=== PATIENT | female | born 1945 | race Caucasian/White ===

== ENCOUNTER 2020-04-17 19:53 | Emergency (ER) | payer OTHER ==
[~2020-04-17] VITALS: Ht 152.4 cm; Wt 46.3 kg
[2020-04-17 20:49] LABS: ABSOLUTE BASOPHILS 0.1 thou/uL (0.0-0.2); ABSOLUTE EOSINOPHILS 0.5 thou/uL (0.0-0.7); ABSOLUTE LYMPHOCYTES 1.3 thou/uL (0.8-5.3); ABSOLUTE MONOCYTES 0.7 thou/uL (0.0-1.2); ABSOLUTE NEUTROPHILS 8.9 thou/uL (1.6-8.1); BASOPHILS 0.8 %; EOSINOPHILS 4.1 %; HEMATOCRIT 28.4 % (37.0-47.0); HEMOGLOBIN 9.1 gm/dL (12.0-15.0); MCH 26.5 pg (26.0-34.0); MCHC 32.2 g/dL (28.0-37.0); MCV 82.4 fL (80.0-100.0); MONOCYTES 6.5 %; MPV 6.8 fl. (7.2-11.1); NUCLEATED RBCS 0 /100WBC; PLATELET COUNT* 433 thou/uL (150-400); POLYS 77.6 %; RBC 3.44 mil/uL (4.20-5.00); RDW-CV 19.2 % (10.5-14.5); WBC 11.4 thou/uL (4.0-11.0)
[2020-04-17 21:00] LABS: CALCIUM 9.2 mg/dL (8.5-10.1); CREATININE 0.9 mg/dL (0.6-1.3); POTASSIUM 4.4 mmol/L (3.5-5.1)
[2020-04-17 21:04] LABS: ALBUMIN 2.9 g/dL (3.4-5.0); TOTAL BILIRUBIN 0.1 mg/dL (<0.1-1.0); TOTAL PROTEIN 7.6 g/dL (6.4-8.2)
[2020-04-17] MEDS ORDERED: LIDOCAINE 2%2 %/5 GM TOP (23:43)
[2020-04-18] MEDS ORDERED: BENTYL 20 MG TA20 M1 PO (00:22)
[2020-04-18 00:26] VITALS: BP 138/74
== END 2020-04-18 00:26 | disposition home or self-care (01) ==
LOC: M.ERS 19:53
PROVIDERS: Personal Emergency Response Attendant
DX: K59.00 Constipation, unspecified (principal); J44.9 Chronic obstructive pulmonary disease, unspecified; Z90.49 Acquired absence of other specified parts of digestive tract; Z99.81 Dependence on supplemental oxygen

== ENCOUNTER 2020-05-31 00:13 | Inpatient (IN) | payer OTHER ==
[~2020-05-31] VITALS: Ht 152.4 cm; Wt 42.9 kg
[2020-05-31] VITALS (58 sets, daily range): BP systolic 79–162; BP diastolic 34–73
[~2020-05-31 00:13] MED LIST: BENTYL 20 MG TA20 M1 PO; LIDOCAINE 2%2 %/5 GM TOP
[2020-05-31 00:59] LABS: URINE BILIRUBIN NEGATIVE (Negative); URINE BLOOD TRACE (Negative); URINE CLARITY CLEAR; URINE COLOR YELLOW; URINE GLUCOSE-RANDOM NEGATIVE (Negative); URINE KETONES NEGATIVE (Negative); URINE LEUKOCYTES-REFLEX TRACE (Negative); URINE NITRITE-REFLEX NEGATIVE (Negative); URINE PROTEIN 2+ (Negative); URINE SPECIFIC GRAVITY >= 1.030 (1.005-1.030); URINE UROBILINOGEN 0.2 E.U./dl (0.2-1.0)
[2020-05-31] MEDS ORDERED: AMOXICILLIN 50500 MG PO (01:00)
[2020-05-31] MEDS ORDERED: ALPRAZOLAM 0.50.5 M1 PO (01:00)
[2020-05-31] MEDS ORDERED: DICYCLOMINE HCL20 MG PO (01:01)
[2020-05-31] MEDS ORDERED: MIRAPEX 0.250.25 M1 PO (01:01)
[2020-05-31] MEDS ORDERED: OXYCONTIN20 M1 PO (01:02)
[2020-05-31] MEDS ORDERED: VENLAFAXINE H37.5 M2 PO (01:09)
[2020-05-31] MEDS ORDERED: NEURONTIN 300M300 M2 PO (01:09)
[2020-05-31 01:14] LABS: CALCIUM 8.9 mg/dL (8.5-10.1); CREATININE 1.6 mg/dL (0.6-1.3); POTASSIUM 4.4 mmol/L (3.5-5.1)
[2020-05-31 01:25] LABS: ALBUMIN 2.4 g/dL (3.4-5.0); MAGNESIUM 2.4 mg/dL (1.8-2.4); TOTAL BILIRUBIN 0.2 mg/dL (<0.1-1.0); TOTAL PROTEIN 7.2 g/dL (6.4-8.2)
[2020-05-31 01:25] LABS: RENAL EPITHELIAL CELLS 0-3 Few /LPF (None Seen); SQUAMOUS 4-10 Moderate /LPF (0-3); TRANSITIONAL EPITHEL CELL 4-10 Moderate /LPF (None Seen)
[2020-05-31 01:26] LABS: AMORPHOUS URATES Many /LPF (None Seen); BACTERIA-REFLEX >30 Many /HPF (None Seen); CASTS None Seen /LPF (None Seen); MUCUS 4-6 Moderate strn/LPF (None Seen); URINE RBC 3-10 Few /HPF (0-2); URINE WBC-REFLEX 6-15 Few /HPF (0-5)
[2020-05-31 01:32] LABS: BE -2.8 mmol/L (-2 to +3)
[2020-05-31 01:33] LABS: PCO2 74.6 mmHg (35.0-45.0); pH 7.178 (7.340-7.450)
[2020-05-31 02:01] LABS: HEMATOCRIT 30.4 % (37.0-47.0); HEMOGLOBIN 9.4 gm/dL (12.0-15.0); MCH 26.3 pg (26.0-34.0); MCHC 30.9 g/dL (28.0-37.0); MCV 85.1 fL (80.0-100.0); MPV 7.3 fl. (7.2-11.1); NUCLEATED RBCS 0 /100WBC; PLATELET COUNT* 323 thou/uL (150-400); RBC 3.58 mil/uL (4.20-5.00); RDW-CV 16.6 % (10.5-14.5); WBC 23.3 thou/uL (4.0-11.0)
[2020-05-31 02:19] LABS: PROTIME 10.9 Seconds (9.20-11.50)
[2020-05-31 03:31] LABS: ABSOLUTE LYMPHOCYTES 0.5 thou/uL (0.8-5.3); ABSOLUTE MONOCYTES 0.7 thou/uL (0.0-1.2); ABSOLUTE NEUTROPHILS 22.1 thou/uL (1.6-8.1); PLATELET ESTIMATE ADEQUATE; TOXIC GRANULATION 1+
[2020-05-31 05:41] LABS: BE -1.3 mmol/L (-2 to +3)
[2020-05-31 05:46] LABS: PCO2 64.1 mmHg (35.0-45.0); PO2 214.7 mmHg (75.0-100.0)
--- NOTE | 2020-05-31 12:13 | EKG ---
[place] [address] ELECTROCARDIOGRAM REPORT Name: NAZIA FENG Room: [address] ADM IN M.R.#: [id number] Admission: 05/31/20 Attend Phys: Ping Sands Discharge: Date of : 45 Date of Service: 05/31/20 0019 Report #: [id number] THIS REPORT FOR: //name// [facility] ED Test Date: 2020-05-31 Test Time: 00:19:17 Pat Name: NAZIA FENG Department: Room: [facility] Gender: F Banking Management Consulting Manager: [place] : 1945 Requested By: Anabelle Leon Order Number: [id number] MD: Marc Britton Measurements Intervals Newton Rate: 100 P: 69 NV: 169 QRS: -70 QRSD: 98 T: 63 QT: 393 QTc: 507 Interpretive Statements Sinus tachycardia incomplete RBBB Left atrial enlargement Left anterior fascicular block Abnormal R-wave progression, early transition Left ventricular hypertrophy Anterior Q waves, possibly due to LVH Prolonged QT interval No previous ECG available for comparison Electronically Signed On 05-31-2020 12:13:48 EQUIPMENT OPERATOR WAGE HAND by Marc Britton [email or web address] <ELECTRONICALLY SIGNED> By: Marc Britton MD, FACC 05/31/20 1213 0019 0019 Marc Britton MD, [facility] /EPI
--- NOTE | 2020-05-31 12:15 | EKG ---
[place] [address] ELECTROCARDIOGRAM REPORT Name: NAZIA FENG Room: [address] ADM IN M.R.#: [id number] Admission: 05/31/20 Attend Phys: Ping Sands Discharge: Date of : 45 Date of Service: 05/31/20 0404 Report #: [id number] THIS REPORT FOR: //name// [facility] ED Test Date: 2020-05-31 Test Time: 04:04:53 Pat Name: NAZIA FENG Department: Room: [address] Gender: F Program Eligibility Specialist: [place] : 1945 Requested By: Anabelle Leon Order Number: [id number] Reading MD: Marc Britton Measurements Intervals Ferdinand Rate: 70 P: 77 MI: 146 QRS: -54 QRSD: 100 T: 38 QT: 437 QTc: 472 Interpretive Statements Sinus rhythm Left atrial enlargement Left anterior fascicular block Left ventricular hypertrophy early repolarization Lateral leads are also involved Compared to ECG 05/31/2020 00:19:17 Sinus tachycardia no longer present Prolonged QT interval no longer present Electronically Signed On 05-31-2020 12:15:38 POLICE CAPTAIN by Marc Britton [email or web address] <ELECTRONICALLY SIGNED> By: Marc Britton MD, [facility] 05/31/20 1215 Marc Britton MD, [facility] /EPI
[2020-05-31 13:27] LABS: CALCIUM 7.6 mg/dL (8.5-10.1); POTASSIUM 4.3 mmol/L (3.5-5.1)
[2020-05-31 13:30] LABS: MAGNESIUM 1.7 mg/dL (1.8-2.4); PHOSPHORUS* 2.4 mg/dL (2.5-4.9)
--- NOTE | 2020-05-31 13:49 | 2DMMODE ---
[place] [address] 2 D/M-MODE ECHOCARDIOGRAM Name: NAZIA FENG Room: [address] ADM IN .R.#: [id number] Admission: 05/31/20 Attend Phys: Ping Sands Discharge: Date of : 45 Date of Service: 05/31/20 1349 Report #: [id number] THIS REPORT FOR: cc: Collin Kauffman Gregory DO Blick,Marc Tate MD [facility] ~ APPROVED REPORT Study performed: 05/31/2020 10:42:25 EXAM: Comprehensive 2D, Doppler, and color-flow Echocardiogram Patient Location: In-Patient Room #: 001 Status: routine BSA: 1.42 HR: 82 bpm BP: 99/49 mmHg Rhythm: NSR Other Information Study Quality: Good Indications Dyspnea 2D Dimensions IVSd: 10.74 (7-11mm) LVOT Diam: 20.30 (18-24mm) LVDd: 40.75 mm PWd: 8.74 (7-11mm) Ascending Ao: 29.28 (22-36mm) LVDs: 19.33 (25-40mm) Aortic Root: 32.32 mm Volumes Left Atrial Volume (Systole) LA ESV Index: 12.90 mL/m2 Aortic Valve AoV Peak Nishant.: 1.33 m/s AO Peak Gr.: 7.03 mmHg LVOT Max P.17 mmHg AO Mean Gr.: 3.58 mmHg LVOT Mean P.46 mmHg LVOT Max V: 0.89 m/s AO V2 VTI: 21.72 cm LVOT Mean V: 0.55 m/s ALEKSANDR (VTI): 2.59 cm2 LVOT V1 VTI: 17.37 [place] [address] 2 D/M-MODE ECHOCARDIOGRAM Name: NAZIA FENG Room: [address] IN ..#: [id number] Admission: 05/31/20 Attend Phys: Ping Sands Discharge: Date of : 45 Date of Service: 05/31/20 1349 Report #: [id number] Mitral Valve E/A Ratio: 0.87 MV Decel. Time: 294.22 ms MV E Max Nishant.: 0.75 m/s MV PHT: 85.32 ms MVA (PHT): 2.58 cm2 TDI E/Lateral E': 15.00 E/Medial E': 12.50 Medial E' Nishant.: 0.06 m/s Lateral E' Nishant.: 0.05 m/s Pulmonary Valve PV Peak Nishant.: 1.06 m/s PV Peak Gr.: 4.50 mmHg Tricuspid Valve RAP Estimate: 5.00 mmHg TR Peak Gr.: 31.34 mmHg RVSP: 36.00 mmHg PA Pressure: 36.00 mmHg Left Ventricle The left ventricle is normal size. There is normal LV segmental wall motion. There is normal left ventricular wall thickness. Left ventricular systolic function is normal. The left ventricular ejection fraction is within the normal range. LVEF is 65-70%. Grade I - abnormal relaxation pattern. Right Ventricle The right ventricle is normal size. The right ventricular systolic function is normal. Atria The left atrium size is normal. The right atrium size is normal. Aortic Valve Mild aortic valve sclerosis. No aortic regurgitation is present. There is no aortic valvular stenosis. Mitral Valve The mitral valve is normal in structure. There is no mitral valve regurgitation noted. No evidence of mitral valve stenosis. Tricuspid Valve The tricuspid valve is normal in structure. Mild tricuspid regurgitation. estimated pa pressure 40 [place] [address] 2 D/M-MODE ECHOCARDIOGRAM Name: NAZIA FENG Room: [address] IN [facility]#: [id number] Admission: 05/31/20 Attend Phys: Ping Sands Discharge: Date of : 45 Date of Service: 05/31/20 1349 Report #: [id number] Pulmonic Valve The pulmonary valve is normal in structure. There is no pulmonic valvular regurgitation. Great Vessels The aortic root is normal in size. IVC is normal in size and collapses >50% with inspiration. Pericardium There is no pericardial effusion. Small left pleural effusion. <Conclusion> LVEF is 65-70%. Mild tricuspid regurgitation. estimated pa pressure 40 mm Hg Small left pleural effusion. <ELECTRONICALLY SIGNED> By: Marc Britton MD, [facility] 05/31/20 1349 1349 1349 Marc Britton MD, FACC /INF
[2020-05-31 14:07] LABS: HEMATOCRIT 26.1 % (37.0-47.0); HEMOGLOBIN 8.1 gm/dL (12.0-15.0); MCH 26.3 pg (26.0-34.0); MCV 84.7 fL (80.0-100.0); MPV 7.4 fl. (7.2-11.1); NUCLEATED RBCS 0 /100WBC; PLATELET COUNT* 302 thou/uL (150-400); RBC 3.08 mil/uL (4.20-5.00); RDW-CV 16.5 % (10.5-14.5)
[2020-05-31 14:25] LABS: ABSOLUTE LYMPHOCYTES 0.5 thou/uL (0.8-5.3); ABSOLUTE MONOCYTES 0.2 thou/uL (0.0-1.2); ABSOLUTE NEUTROPHILS 14.4 thou/uL (1.6-8.1)
[2020-05-31 14:26] LABS: PLATELET ESTIMATE ADEQUATE
[2020-05-31 16:00] LABS: BE -1.4 mmol/L (-2 to +3); PCO2 43.5 mmHg (35.0-45.0); PO2 70.4 mmHg (75.0-100.0); pH 7.361 (7.340-7.450)
--- NOTE | 2020-05-31 22:36 | CON ---
[address] [address] CONSULTATION Name: NAZIA FENG Room: [address] IN M.R.#: [id number] Admission: 05/31/20 Attend Phys: Sid Cross Discharge: Date of : 45 Report #: [id number] THIS REPORT FOR: cc: Collin Kauffman Gregory DO ~ Pervez, Adeel MD DATE OF SERVICE: 05/31/2020 REQUESTING PHYSICIAN: Philip Pablo DO INDICATION FOR CONSULTATION: [id number]-[id number] hypoxemic and hypercarbic respiratory failure. HISTORY OF PRESENT ILLNESS: This is a 75-year-old female with past medical history includes a history of oxygen-dependent COPD. The patient is noted to be an active smoker. The patient in fact toward the middle of 2019 was reported to have had COVID-19. She is reported to have subsequently tested negative for COVID-19 as well. The patient is now admitted with acute respiratory distress and unresponsiveness at home. The patient did briefly receive CPR at home; however, it is not fully apparent to me as to whether the patient in fact had a cardiac arrest or not. She is reported to have had agonal respirations. The patient is now intubated. She does appear to be actively bronchospastic on exam. She does have a drop in pH as well as high pCO2; however, oxygenating adequately and ventilating adequately as well with 40% FiO2 and 5 of PEEP. The patient has mild hypotension requiring minimal amounts of norepinephrine. She does have a central line in place. The patient also is noted to be in acute renal failure. Her creatinine at baseline is 0.9. Creatinine this morning was 1.6. The patient is unable to provide a further history or review of systems. Note that she has tested positive for COVID-19. PAST MEDICAL HISTORY: COPD, oxygen dependent; active smoker; COVID-19 in mid, reported to have subsequently tested negative; anemia; megacolon; gastrointestinal bleed; colon surgery. Baseline creatinine 0.9. SOCIAL HISTORY: Active smoker, 1 pack a day, has been smoking for 60 years. No known history of heavy alcohol use or illegal drug use. CURRENT MEDICATIONS: List in [employer] reviewed. HOME MEDICATIONS: The list also in [employer] reviewed. ALLERGIES: THERE ARE MULTIPLE ALLERGIES LISTED IN THE RECORDS. AMONGST OTHERS, THE PATIENT IS REPORTED TO BE ALLERGIC TO AVELOX, VANCOMYCIN, ADHESIVE [place] [address] CONSULTATION Name: NAZIA FENG Room: [address]#: [id number] Admission: 05/31/20 Attend Phys: Sid Cross Discharge: Date of : 45 Report #: [id number] FAMILY HISTORY: There is no pertinent family history known at this time. PHYSICAL EXAMINATION: GENERAL: The patient is drowsy, arousable. VITAL SIGNS: Pulse of 72 and a blood pressure of 100/60. She is on 1 mcg of norepinephrine. She is afebrile with a temperature of 37.0, which is her T-max. She is on a tidal volume of 450 with an AC rate set at 14. We will decrease FIO2 to 40%, PEEP is 5. The patient is maintaining O2 saturation in the high 90s. Her spontaneous rate is 16. HEENT: Head is normocephalic and atraumatic. Endotracheal tube is in position. As below, it may be low. NECK: Does not show raised JVP, asymmetry, mass or lymph node. There is an IJ central line in place. CHEST: Symmetrical expansion on inspection and palpation. On auscultation, breath sounds are decreased. I do hear significant inspiratory as well as expiratory wheezes. HEART: Regular. There is no murmur. ABDOMEN: Soft and nontender. EXTREMITIES: Lower extremities show no edema and no calf tenderness. SKIN: Dry and intact. NEUROLOGICAL: She does move all extremities bilaterally equally. There is no focal deficit identified. LABORATORY DATA: The patient did have a CT chest without contrast performed. It does show bilateral basilar infiltrates. Endotracheal tube is towards the lower end of the trachea. There are also bilateral pleural effusions noted. There is also significant scarring including apical scarring noted on her CT. There is enlargement of the pulmonary vasculature. Note that this is a noncontrast CT. The patient's CT head did not show any evidence of bleed. The chest x-rays done twice also in [facility] reviewed. Lab work including arterial blood gases in [facility] reviewed. ASSESSMENT AND PLAN: 1. Hkkub-fg-ejbfajw hypoxemic and hypercarbic respiratory failure. Would treat her bronchospasm first. We will also wait until her pH has normalized. We will subsequently assess for weaning. In the meantime, we will start her on a Precedex infusion and give her Versed and fentanyl p.r.n. for sedation. We will check an arterial blood gas again now. The patient's endotracheal tube was low on the last imaging. It is not known to me as to whether this has been repositioned since then. I would repeat a chest x-ray now and then reassess. The patient does have a central line for IV access. 2. Acute exacerbation of chronic obstructive pulmonary disease. The patient is actively bronchospastic; and therefore, significantly increased the dose of her [facility] [address] [place] [address] CONSULTATION Name: NAZIA FENG Room: [address] ADM IN M.R.#: [id number] Admission: 05/31/20 Attend Phys: Sid Cross Discharge: Date of : 45 Report #: [id number] steroid. We will also nebulized bronchodilators. 3. COVID-19. Steroid as above. I will also go ahead and start with remdesivir. Note that there is mild elevation in alkaline phosphatase. Watch this closely while on remdesivir. For now, I decided to hold off on starting convalescent plasma. Should the patient's condition deteriorate, this could be a consideration later on. 4. Pulmonary infiltrates. There is also copious discharge from her endotracheal tube. We will do a sputum culture. We will check a nasal swab for methicillin-resistant Staphylococcus aureus. The patient currently is on ceftriaxone as well as azithromycin. For now, I continued the same. Should she decline based on sputum culture results, certainly we can consider broadening antibiotics later. 5. Acute renal failure/fluid overload. The patient does have bilateral pleural effusions. I feel that she is total body fluid overloaded. However, considering elevation in creatinine and decreased blood pressure, I do agree with normal saline as ordered by the primary service. We will repeat labs now and based on this, if indicated, we will order additional fluids and albumin. 6. Hypotension. We will also await echo. Hopefully, she can be off norepinephrine soon. 7. Deep vein thrombosis prophylaxis. If the patient's H and H remained stable then I will be inclined to start Lovenox in the prophylactic dose soon. 8. History of gastrointestinal bleed/GI prophylaxis. The patient is on Protonix. 9. Nutrition. I recommend proceeding with starting tube feeds. Consult dietitian. The patient is critically ill at this time. Total time spent providing critical care to this patient today exceeds 45 minutes. <ELECTRONICALLY SIGNED> By: Esteban Oconnor MD 05/31/20 2236 1243 [id number] Oconnor MD /nt
[2020-06-01] VITALS (68 sets, daily range): BP systolic 84–176; BP diastolic 47–78
[2020-06-01 05:00] LABS: ABSOLUTE LYMPHOCYTES 0.6 thou/uL (0.8-5.3); ABSOLUTE MONOCYTES 0.9 thou/uL (0.0-1.2); ABSOLUTE NEUTROPHILS 14.4 thou/uL (1.6-8.1); BASOPHILS 0.1 %; HEMATOCRIT 25.6 % (37.0-47.0); HEMOGLOBIN 8.2 gm/dL (12.0-15.0); MCH 26.5 pg (26.0-34.0); MCHC 32.1 g/dL (28.0-37.0); MCV 82.6 fL (80.0-100.0); MONOCYTES 5.6 %; MPV 7.2 fl. (7.2-11.1); NUCLEATED RBCS 0 /100WBC; PLATELET COUNT* 325 thou/uL (150-400); POLYS 90.3 %; RDW-CV 16.8 % (10.5-14.5)
[2020-06-01 05:13] LABS: ALBUMIN 2.2 g/dL (3.4-5.0); ALKALINE PHOSPHATASE 90 U/L (46-116); ANION GAP 7 mmol/L (7-16); BUN 24 mg/dL (7-18); CALCIUM 7.8 mg/dL (8.5-10.1); CHLORIDE 109 mmol/L (98-107); CHOLESTEROL 129 mg/dL (<200); CO2 28 mmol/L (21-32); CREATININE 0.9 mg/dL (0.6-1.3); GLUCOSE 135 mg/dL (70-99); HDL CHOLESTEROL 42 mg/dL (>40); LDL CHOLESTEROL 74 mg/dL (<100); MAGNESIUM 2.1 mg/dL (1.8-2.4); POTASSIUM 3.8 mmol/L (3.5-5.1); SGOT 39 U/L (15-37); SGPT 41 U/L (30-65); SODIUM 144 mmol/L (136-145); TC:HDL 3.1 Ratio (Not establshd); TOTAL BILIRUBIN 0.1 mg/dL (<0.1-1.0); TOTAL PROTEIN 5.8 g/dL (6.4-8.2); TRIGLYCERIDE 69 mg/dL (<150); VLDL 14 mg/dL (<40)
[2020-06-01 05:27] LABS: SERUM ASSESSMENT CLEAR
[2020-06-01 07:55] LABS: BE 1.7 mmol/L (-2 to +3); PCO2 37.4 mmHg (35.0-45.0); PO2 70.4 mmHg (75.0-100.0); pH 7.454 (7.340-7.450)
[2020-06-01 12:57] LABS: BE 1.2 mmol/L (-2 to +3); PCO2 39.1 mmHg (35.0-45.0); pH 7.432 (7.340-7.450)
[2020-06-01 13:01] LABS: PO2 55.7 mmHg (75.0-100.0)
[2020-06-02] VITALS (35 sets, daily range): BP systolic 107–181; BP diastolic 48–98
[2020-06-02 02:32] LABS: ABSOLUTE LYMPHOCYTES 0.3 thou/uL (0.8-5.3); ABSOLUTE MONOCYTES 0.3 thou/uL (0.0-1.2); HEMATOCRIT 28.6 % (37.0-47.0); HEMOGLOBIN 9.2 gm/dL (12.0-15.0); LYMPHOCYTES 1.5 %; MCH 26.2 pg (26.0-34.0); MCV 81.7 fL (80.0-100.0); MONOCYTES 1.5 %; MPV 7.3 fl. (7.2-11.1); NUCLEATED RBCS 0 /100WBC; PLATELET COUNT* 392 thou/uL (150-400); RDW-CV 17.3 % (10.5-14.5); WBC 17.6 thou/uL (4.0-11.0)
[2020-06-02 02:39] LABS: ALBUMIN 2.3 g/dL (3.4-5.0); CALCIUM 8.3 mg/dL (8.5-10.1); MAGNESIUM 1.9 mg/dL (1.8-2.4); POTASSIUM 3.9 mmol/L (3.5-5.1); TOTAL BILIRUBIN 0.2 mg/dL (<0.1-1.0); TOTAL PROTEIN 6.2 g/dL (6.4-8.2)
[2020-06-02 10:53] LABS: BE 2.9 mmol/L (-2 to +3); PCO2 35.1 mmHg (35.0-45.0); PO2 80.9 mmHg (75.0-100.0)
[2020-06-03] VITALS (19 sets, daily range): BP systolic 121–184; BP diastolic 58–92
[2020-06-03 05:00] LABS: HEMOGLOBIN 9.6 gm/dL (12.0-15.0); MCH 26.1 pg (26.0-34.0); MCHC 32.1 g/dL (28.0-37.0); MCV 81.3 fL (80.0-100.0); MPV 7.3 fl. (7.2-11.1); RBC 3.69 mil/uL (4.20-5.00); RDW-CV 17.5 % (10.5-14.5); WBC 18.6 thou/uL (4.0-11.0)
[2020-06-03 05:16] LABS: CALCIUM 9.3 mg/dL (8.5-10.1); CREATININE 0.9 mg/dL (0.6-1.3); POTASSIUM 4.5 mmol/L (3.5-5.1)
--- NOTE | 2020-06-03 09:29 | CON ---
[facility] [address] [place] [address] CONSULTATION Name: NAZIA FENG Room: [address] IN M.R.#: [id number] Admission: 05/31/20 Attend Phys: Sid Cross Discharge: Date of : 45 Report #: [id number] THIS REPORT FOR: cc: Collin Kauffman Gregory DO ~ Blick, David R. MD [facility] DATE OF SERVICE: 05/31/2020 CARDIOLOGY CONSULTATION HISTORY OF PRESENT ILLNESS: The patient is a 75-year-old white female who I was asked to see in the hospital today because of respiratory failure. The patient has a history of COPD. Apparently, family members said they heard the patient's snoring down stairs. When they went to check on her, she was unresponsive. Paramedics were called. When paramedics arrived, the patient had agonal breath and was unresponsive. CPR was started. Apparently, the patient was cardioverted and had spontaneous return of circulation. She was noted to have a pulse. She was given epinephrine. She apparently had recently been discharged from [facility] a month ago due to pneumonia and anemia requiring transfusions. There has been no history of chest pain, palpitations or syncope. PAST MEDICAL HISTORY: She has had previous hemicolectomy, anemia. MEDICATIONS: On admission included Xanax, Mirapex, venlafaxine, Neurontin. ALLERGIES: SHE HAS AN ALLERGY TO VANCOMYCIN AND CODEINE. SOCIAL HISTORY: No history of alcohol abuse. REVIEW OF SYSTEMS: Could not be obtained. PHYSICAL EXAMINATION: GENERAL: In the ICU reveals an elderly female lying in bed, on ventilator. VITAL SIGNS: Blood pressure is only 100 systolic, pulse is 80, she is on Levophed infusion for low blood pressure. She is afebrile. HEENT: She was anicteric. Conjunctivae pink. Mucous members moist. NECK: Veins do not appear distended. CHEST: Revealed decreased breath sounds bilaterally. CARDIOVASCULAR: Regular rate and rhythm, no murmur. ABDOMEN: Soft. EXTREMITIES: Had no edema. SKIN: Cool and dry. NEUROLOGIC: [place] [address] CONSULTATION Name: NAZIA FENG Room: [address] IN [facility]#: [id number] Admission: 05/31/20 Attend Phys: Sid Cross Discharge: Date of : 45 Report #: [id number] RADIOLOGICAL DATA: Her ECG on admission showed a sinus rhythm, left axis, early repolarization. Her workup in the Emergency Room last night, she had a portable chest x-ray that showed right lower lobe infiltrate, some atelectasis. She had a CT scan of the head that showed no acute abnormality. She had a CT scan of the chest performed that showed some atelectasis, pneumonia. There appeared to be a vascular stent in the right carotid artery. LABORATORY WORK: Last night, sodium 135, BUN 37, creatinine 1.6, glucose was 178, SGOT 117, albumin 2.4. Troponin 0.06. BNP 904. White blood cell count 23.3, hemoglobin 9.4. COVID antigen test was positive. IMPRESSION AND RECOMMENDATIONS: 1. Acute respiratory failure. The patient is on ventilator. 2. Chronic obstructive pulmonary disease. 3. Hypotension. Suspect sepsis. 4. COVID-19. 5. Anemia, apparently chronic. <ELECTRONICALLY SIGNED> By: Marc Britton MD, [facility] 06/03/20 0929 0903 [id number] Britton MD, [facility] /nt
[2020-06-04 06:34] LABS: HEMATOCRIT 33.8 % (37.0-47.0); HEMOGLOBIN 10.5 gm/dL (12.0-15.0); MCH 25.7 pg (26.0-34.0); MCHC 31.2 g/dL (28.0-37.0); MCV 82.2 fL (80.0-100.0); MPV 8.1 fl. (7.2-11.1); NUCLEATED RBCS 0 /100WBC; RBC 4.11 mil/uL (4.20-5.00); RDW-CV 17.3 % (10.5-14.5); WBC 23.6 thou/uL (4.0-11.0)
[2020-06-04 06:37] LABS: PLATELET COUNT* 534 thou/uL (150-400)
[2020-06-04 07:10] LABS: ALBUMIN 2.6 g/dL (3.4-5.0); CALCIUM 9.6 mg/dL (8.5-10.1); CREATININE 0.9 mg/dL (0.6-1.3); MAGNESIUM 2.1 mg/dL (1.8-2.4); POTASSIUM 4.1 mmol/L (3.5-5.1); TOTAL BILIRUBIN 0.3 mg/dL (<0.1-1.0); TOTAL PROTEIN 6.6 g/dL (6.4-8.2)
[2020-06-04 07:23] LABS: ABSOLUTE LYMPHOCYTES 0.7 thou/uL (0.8-5.3); ABSOLUTE MONOCYTES 1.2 thou/uL (0.0-1.2); ABSOLUTE NEUTROPHILS 21.7 thou/uL (1.6-8.1); PLATELET ESTIMATE ADEQUATE
[2020-06-04 08:00] VITALS: BP 177/73
[2020-06-04 15:51] VITALS: BP 161/71
[2020-06-04 23:58] VITALS: BP 170/81
[2020-06-05 04:08] VITALS: BP 197/104
[2020-06-05 08:00] VITALS: BP 162/78
[2020-06-05 11:30] VITALS: BP 151/75
[2020-06-05 15:13] LABS: ABSOLUTE BASOPHILS 0.3 thou/uL (0.0-0.2); ABSOLUTE LYMPHOCYTES 0.3 thou/uL (0.8-5.3); ABSOLUTE MONOCYTES 0.6 thou/uL (0.0-1.2); ABSOLUTE NEUTROPHILS 26.1 thou/uL (1.6-8.1); BASOPHILS 1.1 %; HEMATOCRIT 33.8 % (37.0-47.0); HEMOGLOBIN 10.4 gm/dL (12.0-15.0); LYMPHOCYTES 1.1 %; MCH 25.3 pg (26.0-34.0); MCHC 30.7 g/dL (28.0-37.0); MCV 82.6 fL (80.0-100.0); MPV 7.7 fl. (7.2-11.1); NUCLEATED RBCS 0 /100WBC; POLYS 95.8 %; RBC 4.09 mil/uL (4.20-5.00); RDW-CV 17.2 % (10.5-14.5); WBC 27.2 thou/uL (4.0-11.0)
[2020-06-05 15:14] LABS: PLATELET COUNT* 455 thou/uL (150-400)
[2020-06-05 15:35] LABS: ALBUMIN 2.7 g/dL (3.4-5.0); CALCIUM 9.7 mg/dL (8.5-10.1); CREATININE 1.2 mg/dL (0.6-1.3); POTASSIUM 4.9 mmol/L (3.5-5.1); TOTAL BILIRUBIN 0.4 mg/dL (<0.1-1.0); TOTAL PROTEIN 6.3 g/dL (6.4-8.2)
[2020-06-05 16:30] VITALS: BP 146/77
[2020-06-05 21:00] VITALS: BP 117/52; BP 144/64
[2020-06-06 08:00] VITALS: BP 174/68
[2020-06-06 11:54] VITALS: BP 134/59
[2020-06-06 12:36] LABS: ABSOLUTE BASOPHILS 0.1 thou/uL (0.0-0.2); ABSOLUTE LYMPHOCYTES 0.4 thou/uL (0.8-5.3); ABSOLUTE MONOCYTES 0.8 thou/uL (0.0-1.2); ABSOLUTE NEUTROPHILS 13.9 thou/uL (1.6-8.1); BASOPHILS 0.3 %; HEMATOCRIT 29.7 % (37.0-47.0); HEMOGLOBIN 9.1 gm/dL (12.0-15.0); LYMPHOCYTES 2.4 %; MCH 25.5 pg (26.0-34.0); MCHC 30.8 g/dL (28.0-37.0); MCV 82.8 fL (80.0-100.0); MONOCYTES 5.2 %; MPV 8.5 fl. (7.2-11.1); NUCLEATED RBCS 0 /100WBC; PLATELET COUNT* 402 thou/uL (150-400); POLYS 92.1 %; RBC 3.59 mil/uL (4.20-5.00); RDW-CV 17.3 % (10.5-14.5); WBC 15.1 thou/uL (4.0-11.0)
[2020-06-06 12:47] LABS: CALCIUM 9.2 mg/dL (8.5-10.1); CREATININE 1.1 mg/dL (0.6-1.3); MAGNESIUM 2.2 mg/dL (1.8-2.4); POTASSIUM 4.9 mmol/L (3.5-5.1)
[2020-06-06] MEDS ORDERED: ASA81BEC PO (13:57)
[2020-06-06 16:37] VITALS: BP 162/62
[2020-06-06 20:20] VITALS: BP 162/73
[2020-06-07 00:05] VITALS: BP 154/65
[2020-06-07 03:59] VITALS: BP 188/76
[2020-06-07 12:00] VITALS: BP 192/78
[2020-06-07 17:09] VITALS: BP 145/70
[2020-06-07 20:06] VITALS: BP 131/64
[2020-06-07 23:24] VITALS: BP 180/79
[2020-06-08 04:21] VITALS: BP 137/59
[2020-06-08 04:21] LABS: HEMATOCRIT 30.2 % (37.0-47.0); HEMOGLOBIN 9.5 gm/dL (12.0-15.0); MCH 25.9 pg (26.0-34.0); MCHC 31.6 g/dL (28.0-37.0); MCV 82.1 fL (80.0-100.0); NUCLEATED RBCS 0 /100WBC; PLATELET COUNT* 370 thou/uL (150-400); RBC 3.68 mil/uL (4.20-5.00); RDW-CV 17.3 % (10.5-14.5); WBC 19.1 thou/uL (4.0-11.0)
[2020-06-08 04:34] LABS: ALBUMIN 2.6 g/dL (3.4-5.0); CALCIUM 9.4 mg/dL (8.5-10.1); MAGNESIUM 2.1 mg/dL (1.8-2.4); POTASSIUM 4.8 mmol/L (3.5-5.1); TOTAL BILIRUBIN 0.3 mg/dL (<0.1-1.0); TOTAL PROTEIN 5.9 g/dL (6.4-8.2)
[2020-06-08 06:15] LABS: ABSOLUTE LYMPHOCYTES 0.2 thou/uL (0.8-5.3); ABSOLUTE MONOCYTES 0.4 thou/uL (0.0-1.2); ABSOLUTE NEUTROPHILS 18.5 thou/uL (1.6-8.1); PLATELET ESTIMATE ADEQUATE
[2020-06-08 11:48] VITALS: BP 148/68
[2020-06-08 15:56] VITALS: BP 133/60
[2020-06-08 20:00] VITALS: BP 171/68
[2020-06-09 00:10] VITALS: BP 146/66
[2020-06-09 04:32] VITALS: BP 130/62
[2020-06-09 05:42] LABS: ABSOLUTE EOSINOPHILS 0.1 thou/uL (0.0-0.7); ABSOLUTE LYMPHOCYTES 1.2 thou/uL (0.8-5.3); ABSOLUTE MONOCYTES 1.4 thou/uL (0.0-1.2); ABSOLUTE NEUTROPHILS 19.8 thou/uL (1.6-8.1); BASOPHILS 0.1 %; EOSINOPHILS 0.6 %; HEMATOCRIT 31.3 % (37.0-47.0); HEMOGLOBIN 9.6 gm/dL (12.0-15.0); LYMPHOCYTES 5.1 %; MCH 25.5 pg (26.0-34.0); MCHC 30.7 g/dL (28.0-37.0); MCV 83.1 fL (80.0-100.0); MONOCYTES 6.1 %; MPV 7.8 fl. (7.2-11.1); NUCLEATED RBCS 0 /100WBC; PLATELET COUNT* 417 thou/uL (150-400); POLYS 88.1 %; RBC 3.76 mil/uL (4.20-5.00); RDW-CV 17.2 % (10.5-14.5); WBC 22.4 thou/uL (4.0-11.0)
[2020-06-09 05:57] LABS: CALCIUM 9.2 mg/dL (8.5-10.1); CREATININE 0.9 mg/dL (0.6-1.3); MAGNESIUM 2.2 mg/dL (1.8-2.4); POTASSIUM 4.6 mmol/L (3.5-5.1)
[2020-06-09 07:31] VITALS: BP 129/69
[2020-06-09 12:01] VITALS: BP 130/58
[2020-06-09 16:00] VITALS: BP 151/66
[2020-06-10 01:45] VITALS: BP 124/54
[2020-06-10 04:42] LABS: ABSOLUTE EOSINOPHILS 0.1 thou/uL (0.0-0.7); ABSOLUTE LYMPHOCYTES 0.9 thou/uL (0.8-5.3); ABSOLUTE MONOCYTES 0.9 thou/uL (0.0-1.2); ABSOLUTE NEUTROPHILS 15.3 thou/uL (1.6-8.1); BASOPHILS 0.1 %; EOSINOPHILS 0.5 %; HEMATOCRIT 28.5 % (37.0-47.0); HEMOGLOBIN 8.8 gm/dL (12.0-15.0); LYMPHOCYTES 5.3 %; MCH 26.1 pg (26.0-34.0); MCHC 30.8 g/dL (28.0-37.0); MCV 84.5 fL (80.0-100.0); MONOCYTES 5.2 %; MPV 8.1 fl. (7.2-11.1); NUCLEATED RBCS 0 /100WBC; POLYS 88.9 %; RBC 3.38 mil/uL (4.20-5.00); RDW-CV 17.1 % (10.5-14.5); WBC 17.2 thou/uL (4.0-11.0)
[2020-06-10 04:58] LABS: CREATININE 0.9 mg/dL (0.6-1.3); MAGNESIUM 2.4 mg/dL (1.8-2.4); POTASSIUM 4.8 mmol/L (3.5-5.1)
[2020-06-10 05:08] LABS: PLATELET COUNT* 317 thou/uL (150-400)
[2020-06-10 08:00] VITALS: BP 139/89
[2020-06-10 13:00] VITALS: BP 116/55
[2020-06-10 15:51] VITALS: BP 127/59
[2020-06-10 20:00] VITALS: BP 127/59
[2020-06-11] VITALS: BP 146/68
[2020-06-11 04:00] VITALS: BP 155/67
[2020-06-11 06:23] LABS: HEMATOCRIT 31.5 % (37.0-47.0); HEMOGLOBIN 9.8 gm/dL (12.0-15.0); MCH 26.1 pg (26.0-34.0); MCHC 31.1 g/dL (28.0-37.0); MCV 83.8 fL (80.0-100.0); MPV 8.1 fl. (7.2-11.1); NUCLEATED RBCS 0 /100WBC; PLATELET COUNT* 332 thou/uL (150-400); RBC 3.76 mil/uL (4.20-5.00); WBC 20.4 thou/uL (4.0-11.0)
[2020-06-11 06:36] LABS: ANION GAP < 0 mmol/L (7-16); BUN 20 mg/dL (7-18); CALCIUM 9.3 mg/dL (8.5-10.1); CHLORIDE 99 mmol/L (98-107); CO2 41 mmol/L (21-32); CREATININE 0.8 mg/dL (0.6-1.3); GLUCOSE 110 mg/dL (70-99); MAGNESIUM 2.4 mg/dL (1.8-2.4); POTASSIUM 4.2 mmol/L (3.5-5.1); SODIUM 138 mmol/L (136-145)
[2020-06-11 07:05] LABS: ABSOLUTE BASOPHILS 0.2 thou/uL (0.0-0.2); ABSOLUTE MONOCYTES 1.2 thou/uL (0.0-1.2); PLATELET ESTIMATE ADEQUATE
[2020-06-11 09:00] VITALS: BP 136/68
[2020-06-11 15:19] VITALS: BP 132/66
[2020-06-11 19:51] VITALS: BP 115/52
[2020-06-12] VITALS: BP 141/58
[2020-06-12 04:00] VITALS: BP 142/59
[2020-06-12 04:12] LABS: ALBUMIN 1.9 g/dL (3.4-5.0); CALCIUM 7.5 mg/dL (8.5-10.1); CREATININE 0.6 mg/dL (0.6-1.3); MAGNESIUM 1.8 mg/dL (1.8-2.4); POTASSIUM 3.5 mmol/L (3.5-5.1); TOTAL BILIRUBIN 0.2 mg/dL (<0.1-1.0); TOTAL PROTEIN 4.7 g/dL (6.4-8.2)
[2020-06-12 05:25] LABS: HEMATOCRIT 28.4 % (37.0-47.0); MCH 26.2 pg (26.0-34.0); MCHC 31.5 g/dL (28.0-37.0); MCV 83.2 fL (80.0-100.0); MPV 7.8 fl. (7.2-11.1); RBC 3.42 mil/uL (4.20-5.00); RDW-CV 17.1 % (10.5-14.5); WBC 15.5 thou/uL (4.0-11.0)
[2020-06-12] MEDS ORDERED: LIDOPATCH1 EACH TOP (07:41)
[2020-06-12] MEDS ORDERED: DEXAMETHASONE 22 M1 PO (07:41)
[2020-06-12] MEDS ORDERED: BROVANA15 MCG/2 M INH (07:41)
[2020-06-12] MEDS ORDERED: NEURONTIN 300M300 M2 PO (07:41)
[2020-06-12] MEDS ORDERED: IPRAT-ALBUT 0.5-3 ML INH (07:41)
[2020-06-12] MEDS ORDERED: CYCLOBENZAPRINE10 MG PO (07:41)
[2020-06-12] MEDS ORDERED: DURAGESIC1 EAC4 TRANSDERM (07:41)
[2020-06-12] MEDS ORDERED: OXYCODONE HCL 55 MG PO (07:41)
[2020-06-12] MEDS ORDERED: TRAMADOL 50 MG50 MG PO (07:41)
[2020-06-12 08:00] VITALS: BP 105/46
[2020-06-12 08:22] LABS: CALCIUM 8.9 mg/dL (8.5-10.1); CREATININE 0.7 mg/dL (0.6-1.3); POTASSIUM 4.3 mmol/L (3.5-5.1)
[2020-06-12 12:16] VITALS: BP 120/56
== END 2020-06-12 13:55 | DRG 871 ==
LOC: M.ERS 00:13 → M.ICU 04:21 → M.TBA-ER 04:21 → M.2W 04:21 → M.ICU 05:10 → M.2W 06-03 18:35 → M.ORTHSURG 06-10 20:15 → M.2W 06-11 14:35
PROVIDERS: Emergency Medicine; Internal Medicine; Internal Medicine Cardiovascular Disease; Internal Medicine Critical Care Medicine; ADMIT Internal Medicine; ATTEND Internal Medicine
PROC: 02HV33Z Insertion of Infusion Device into Superior Vena Cava, Percutaneous Approach (ICD-10-PCS; principal; 2020-05-31)
PROC: 0BH17EZ Insertion of Endotracheal Airway into Trachea, Via Natural or Artificial Opening (ICD-10-PCS; principal; 2020-05-31)
PROC: 5A1945Z Respiratory Ventilation, 24-96 Consecutive Hours (ICD-10-PCS; principal; 2020-05-31)
PROC: 5A09357 Assistance with Respiratory Ventilation, Less than 24 Consecutive Hours, Continuous Positive Airway Pressure (ICD-10-PCS; 2020-06-03)
PROC: 5A09357 Assistance with Respiratory Ventilation, Less than 24 Consecutive Hours, Continuous Positive Airway Pressure (ICD-10-PCS; 2020-06-05)
PROC: 5A0935A Assistance with Respiratory Ventilation, Less than 24 Consecutive Hours, High Flow/Velocity Cannula (ICD-10-PCS; 2020-06-05)
PROC: 5A09357 Assistance with Respiratory Ventilation, Less than 24 Consecutive Hours, Continuous Positive Airway Pressure (ICD-10-PCS; 2020-06-06)
PROC: 5A0935A Assistance with Respiratory Ventilation, Less than 24 Consecutive Hours, High Flow/Velocity Cannula (ICD-10-PCS; 2020-06-06)
PROC: 5A0935A Assistance with Respiratory Ventilation, Less than 24 Consecutive Hours, High Flow/Velocity Cannula (ICD-10-PCS; 2020-06-07)
PROC: 5A09357 Assistance with Respiratory Ventilation, Less than 24 Consecutive Hours, Continuous Positive Airway Pressure (ICD-10-PCS; 2020-06-07)
PROC: 5A09357 Assistance with Respiratory Ventilation, Less than 24 Consecutive Hours, Continuous Positive Airway Pressure (ICD-10-PCS; 2020-06-08)
PROC: 5A0935A Assistance with Respiratory Ventilation, Less than 24 Consecutive Hours, High Flow/Velocity Cannula (ICD-10-PCS; 2020-06-08)
PROC: 5A09357 Assistance with Respiratory Ventilation, Less than 24 Consecutive Hours, Continuous Positive Airway Pressure (ICD-10-PCS; 2020-06-09)
PROC: 5A0935A Assistance with Respiratory Ventilation, Less than 24 Consecutive Hours, High Flow/Velocity Cannula (ICD-10-PCS; 2020-06-09)
PROC: 5A0935A Assistance with Respiratory Ventilation, Less than 24 Consecutive Hours, High Flow/Velocity Cannula (ICD-10-PCS; 2020-06-10)
PROC: XW033E5 Introduction of Remdesivir Anti-infective into Peripheral Vein, Percutaneous Approach, New Technology Group 5 (ICD-10-PCS; 2020-06-10)
PROC: 5A0935A Assistance with Respiratory Ventilation, Less than 24 Consecutive Hours, High Flow/Velocity Cannula (ICD-10-PCS; 2020-06-11)
PROC: 5A0935A Assistance with Respiratory Ventilation, Less than 24 Consecutive Hours, High Flow/Velocity Cannula (ICD-10-PCS; 2020-06-12)
DX: A41.89 Other specified sepsis (principal); U07.1 COVID-19; I46.9 Cardiac arrest, cause unspecified; J96.21 Acute and chronic respiratory failure with hypoxia; S22.5XXA Flail chest, initial encounter for closed fracture; J12.82 Pneumonia due to coronavirus disease 2019; J96.22 Acute and chronic respiratory failure with hypercapnia; J15.6 Pneumonia due to other Gram-negative bacteria; G93.41 Metabolic encephalopathy; N30.01 Acute cystitis with hematuria; J44.0 Chronic obstructive pulmonary disease with (acute) lower respiratory infection; J44.1 Chronic obstructive pulmonary disease with (acute) exacerbation; E44.0 Moderate protein-calorie malnutrition; Z68.1 Body mass index [BMI] 19.9 or less, adult; N17.9 Acute kidney failure, unspecified; K56.7 Ileus, unspecified; F17.210 Nicotine dependence, cigarettes, uncomplicated; E87.70 Fluid overload, unspecified; D64.9 Anemia, unspecified; I95.9 Hypotension, unspecified; K59.00 Constipation, unspecified; R65.20 Severe sepsis without septic shock; Z90.49 Acquired absence of other specified parts of digestive tract; Z79.899 Other long term (current) drug therapy; Z88.1 Allergy status to other antibiotic agents; Z88.5 Allergy status to narcotic agent; Z88.8 Allergy status to other drugs, medicaments and biological substances; X58.XXXA Exposure to other specified factors, initial encounter; Y93.89 Activity, other specified; Y92.89 Other specified places as the place of occurrence of the external cause; Y99.8 Other external cause status

== ENCOUNTER 2020-06-14 14:53 | Inpatient (IN) | payer OTHER ==
[~2020-06-14] VITALS: Ht 152.4 cm; Wt 43.1 kg
--- NOTE | ~2020-06-14 | EMS ---
[facility] [address] [place] [address] EMS Patient Care Report Name: NAZIA FENG Room: [place] [address] ADM IN M.R.#: [id number] Admission: 06/14/20 Attend Phys: Sid Cross Discharge: Date of : 45 Report #: [id number] THIS REPORT FOR: //name// Report Transmitted: 06/14/2020 15:17 EMS Care Summary [facility] [place] Incident [id number] @ 06/14/2020 14:11 Incident Location [address] [place] [address] Patient NAZIA FENG Female, 75 Years 1945 Patient Address [address] [place], [place] [id number] Patient History Cardiac Arrest, Patient Allergies No known allergies, Patient Medications , Hydrocodone, Chief Complaint Altered Level of Consciousness Disposition Transported No Lights/[place] Reason Breathing Problem Transported To [facility] Narrative Dispatched to address noted for shortness of breath. [facility] en route at time noted and on scene of the rehabilitation center. Arrived and found a female patient sitting in a wheel chair with a NC on. Staff stated that at 1330 hours they found her with an altered mental status and low O2 saturation in the 80s. [facility] [address] [place] [address] EMS Patient Care Report Name: NAZIA FENG Room: [address] IN [facility]#: [id number] Admission: 06/14/20 Attend Phys: Sid Cross Discharge: Date of : 45 Report #: [id number] They attempted a breathing treatment and then decided to give the patient 0.4 MG of Narcan. Which then caused the patient to regain her alertness and was now GCS of 15. Patient RN stated she has only taken 10 MG of Hydrocodone today at 0800 hours. Patient was moved to the stretcher and her pupils appeared dilated. (Patient is being seen at the rehab for post cardiac arrest care on the 31 of may). Patient was buckled in and she was continued on her normal 5 L/Minute of O2. patient appeared to be dazed as we loaded her into the ambulance. Once in ambulance, vitals where taken at time noted. Patient had normal vitals signs and IV was attempted twice with no success. While en route, patient started to become more altered and tired in appearance. Patient could not elaborate her feelings. I then found her saturations had dropped and I gave 0.5 MG of Narcan IN. Patient was moved to a non-rebreather at this time. Radio report was given at time noted. Arrived and took patient to [facility]. Patient was moved to bed and RN was given verbal report. RN signed for patient and patient care. END REPORT EMT-P Donal Arias Initial Vitals @14:21SpO2: 83, @14:44SpO2: 75, @14:46SpO2: 87, @14:47SpO2: 74, @14:49SpO2: 83, @14:31 @14:33 @14:46 @14:21P: 105,R: 16,BP: 113/54, @14:35P: 98,R: 16,BP: 94/52, @14:39P: 97,R: 16,BP: 96/49, @14:47P: 97,R: 16,BP: 83/46, @14:56IrXX8: 32, @14:24CyXF8: 32, @14:56AhHO8: 34, @14:38ChPL4: 33, @14:49BjRQ8: 35, @14:24HeSI7: 29, @14:93RcVV3: 36, @14:27QcRP6: 35, @14:21GCS: 15, @14:35GCS: 15, @14:39GCS: 15, @14:47GCS: 15, @14:19 @14:37Glucose: 100, Assessments @14:19MENTAL:SKIN:HEENT:[place] [address] EMS Patient Care Report Name: NAZIA FENG Room: [place] [address] ADM IN M.R.#: [id number] Admission: 06/14/20 Attend Phys: Sid Cross Discharge: Date of : 45 Report #: [id number] SOUNDS:ABDOMEN:PELVIS//GI:EXTREMITIES:PULSE:NEURO: Impression Opioid use, unspecified Procedures @14:19Other - Medication - 15.000 Liters per Minute (l/min [fluid]) - Non-Rebreather MaskResponse: Unchanged@14:45Naloxone - 0.500 Milligrams (mg) - IntranasalResponse: Improved@14:37 cc () Site: Antecubital-LeftResponse: UnchangedFailed@14:37 cc () Site: Antecubital-LeftResponse: UnchangedFailed@14:29Digital respired carbon dioxide monitoring (regime/therapy)Response: UnchangedSucceeded@14:30Digital respired carbon dioxide monitoring (regime/therapy)Response: UnchangedSucceeded@14:34Digital respired carbon dioxide monitoring (regime/therapy)Response: UnchangedSucceeded@14:35Digital respired carbon dioxide monitoring (regime/therapy)Response: UnchangedSucceeded@14:39Digital respired carbon dioxide monitoring (regime/therapy)Response: UnchangedSucceeded@14:44Digital respired carbon dioxide monitoring (regime/therapy)Response: UnchangedSucceeded@14:46Digital respired carbon dioxide monitoring (regime/therapy)Response: UnchangedSucceeded@14:47Digital respired carbon dioxide monitoring (regime/therapy)Response: UnchangedSucceeded@14:3112-Lead ECGResponse: UnchangedSucceeded@14:3312-Lead ECGResponse: UnchangedSucceeded@14:463-Lead ECGResponse: UnchangedSucceeded Timeline 14:11,Call Received 14:11,Dispatch Notified 14:11,Psap Call 14:11,Dispatched 14:12,En Route 14:17,On Scene 14:19,At Patient 14:19,Other - Medication - 15.000 Liters per Minute (l/min [fluid]) - Non-Rebreather Mask,Response: Unchanged 14:19,BP: / M,PULSE: ,RR: R,SPO2: Ox,ETCO2: ,BG: ,PAIN: ,GCS: , 14:21,BP: / M,PULSE: ,RR: R,SPO2: 83 Ox,ETCO2: ,BG: ,PAIN: ,GCS: , 14:21,BP: 113/54 M,PULSE: 105,RR: 16 R,SPO2: Ox,ETCO2: ,BG: ,PAIN: ,GCS: , 14:21,BP: / M,PULSE: ,RR: R,SPO2: Ox,ETCO2: ,BG: ,PAIN: ,GCS: 15, 14:29,Digital respired carbon dioxide monitoring (regime/therapy),Response: UnchangedSucceeded, 14:29,BP: / M,PULSE: ,RR: R,SPO2: Ox,ETCO2: 32 ,BG: ,PAIN: ,GCS: , 14:30,Digital respired carbon dioxide monitoring (regime/therapy),Response: UnchangedSucceeded, 14:30,BP: / M,PULSE: ,RR: R,SPO2: Ox,ETCO2: 32 ,BG: ,PAIN: ,GCS: , 14:31,12-Lead ECG,Response: UnchangedSucceeded, 14:31,BP: / M,PULSE: ,RR: R,SPO2: Ox,ETCO2: ,BG: ,PAIN: ,GCS: , [place] [address] EMS Patient Care Report Name: NAZIA FENG Room: [address] IN M.R.#: [id number] Admission: 06/14/20 Attend Phys: Sid Cross Discharge: Date of : 45 Report #: [id number] 14:33,12-Lead ECG,Response: UnchangedSucceeded, 14:33,BP: / M,PULSE: ,RR: R,SPO2: Ox,ETCO2: ,BG: ,PAIN: ,GCS: , 14:34,Digital respired carbon dioxide monitoring (regime/therapy),Response: UnchangedSucceeded, 14:34,BP: / M,PULSE: ,RR: R,SPO2: Ox,ETCO2: 34 ,BG: ,PAIN: ,GCS: , 14:35,Digital respired carbon dioxide monitoring (regime/therapy),Response: UnchangedSucceeded, 14:35,BP: 94/52 M,PULSE: 98,RR: 16 R,SPO2: Ox,ETCO2: ,BG: ,PAIN: ,GCS: , 14:35,BP: / M,PULSE: ,RR: R,SPO2: Ox,ETCO2: 33 ,BG: ,PAIN: ,GCS: , 14:35,BP: / M,PULSE: ,RR: R,SPO2: Ox,ETCO2: ,BG: ,PAIN: ,GCS: 15, 14:37, cc Site: Antecubital-Left,Response: UnchangedFailed, 14:37, cc Site: Antecubital-Left,Response: UnchangedFailed, 14:37,BP: / M,PULSE: ,RR: R,SPO2: Ox,ETCO2: ,B,PAIN: ,GCS: , 14:39,Digital respired carbon dioxide monitoring (regime/therapy),Response: UnchangedSucceeded, 14:39,BP: 96/49 M,PULSE: 97,RR: 16 R,SPO2: Ox,ETCO2: ,BG: ,PAIN: ,GCS: , 14:39,BP: / M,PULSE: ,RR: R,SPO2: Ox,ETCO2: 35 ,BG: ,PAIN: ,GCS: , 14:39,BP: / M,PULSE: ,RR: R,SPO2: Ox,ETCO2: ,BG: ,PAIN: ,GCS: 15, 14:39,Depart Scene 14:44,Digital respired carbon dioxide monitoring (regime/therapy),Response: UnchangedSucceeded, 14:44,BP: / M,PULSE: ,RR: R,SPO2: 75 Ox,ETCO2: ,BG: ,PAIN: ,GCS: , 14:44,BP: / M,PULSE: ,RR: R,SPO2: Ox,ETCO2: 29 ,BG: ,PAIN: ,GCS: , 14:45,Naloxone - 0.500 Milligrams (mg) - Intranasal,Response: Improved 14:46,Digital respired carbon dioxide monitoring (regime/therapy),Response: UnchangedSucceeded, 14:46,3-Lead ECG,Response: UnchangedSucceeded, 14:46,BP: / M,PULSE: ,RR: R,SPO2: 87 Ox,ETCO2: ,BG: ,PAIN: ,GCS: , 14:46,BP: / M,PULSE: ,RR: R,SPO2: Ox,ETCO2: ,BG: ,PAIN: ,GCS: , 14:46,BP: / M,PULSE: ,RR: R,SPO2: Ox,ETCO2: 36 ,BG: ,PAIN: ,GCS: , 14:47,Digital respired carbon dioxide monitoring (regime/therapy),Response: UnchangedSucceeded, 14:47,BP: / M,PULSE: ,RR: R,SPO2: 74 Ox,ETCO2: ,BG: ,PAIN: ,GCS: , 14:47,BP: 83/46 M,PULSE: 97,RR: 16 R,SPO2: Ox,ETCO2: ,BG: ,PAIN: ,GCS: , 14:47,BP: / M,PULSE: ,RR: R,SPO2: Ox,ETCO2: 35 ,BG: ,PAIN: ,GCS: , 14:47,BP: / M,PULSE: ,RR: R,SPO2: Ox,ETCO2: ,BG: ,PAIN: ,GCS: 15, 14:49,BP: / M,PULSE: ,RR: R,SPO2: 83 Ox,ETCO2: ,BG: ,PAIN: ,GCS: , 14:50,At Destination 15:04,Call Closed Disclaimer v1.1 Copyright 2020 [employer] This EMS Care Summary contains data elements from the applicable legal record (which may be displayed differently). It is designed to provide pertinent information for the following purposes: continuity of care, clinical quality, and state data reporting. The complete legal [place] [address] EMS Patient Care Report Name: NAZIA FENG Room: [address] IN [facility].#: [id number] Admission: 06/14/20 Attend Phys: Sid Cross Discharge: Date of : 45 Report #: [id number] and administrators of the receiving hospital in [facility]'s Patient Tracker. All data is provided "as is."
[~2020-06-14 14:53] MED LIST changes: +ALPRAZOLAM 0.50.5 M1 PO; +AMOXICILLIN 50500 MG PO; +ASA81BEC PO; +BROVANA15 MCG/2 M INH; +CYCLOBENZAPRINE10 MG PO; +DEXAMETHASONE 22 M1 PO; +DICYCLOMINE HCL20 MG PO; +DURAGESIC1 EAC4 TRANSDERM; +IPRAT-ALBUT 0.5-3 ML INH; +LIDOPATCH1 EACH TOP; +MIRAPEX 0.250.25 M1 PO; +NEURONTIN 300M300 M2 PO; +OXYCODONE HCL 55 MG PO; +OXYCONTIN20 M1 PO; +TRAMADOL 50 MG50 MG PO; +VENLAFAXINE H37.5 M2 PO
[2020-06-14 14:59] VITALS: BP 97/44
[2020-06-14] MEDS ORDERED: PERCOCET 5-3251 EACH PO (15:16)
[2020-06-14] MEDS ORDERED: STRIVERDI RESPIM4 GM INH (15:17)
[2020-06-14 15:37] LABS: ABSOLUTE BASOPHILS 0.1 thou/uL (0.0-0.2); ABSOLUTE LYMPHOCYTES 0.4 thou/uL (0.8-5.3); ABSOLUTE MONOCYTES 0.9 thou/uL (0.0-1.2); BASOPHILS 0.3 %; HEMATOCRIT 35.5 % (37.0-47.0); LYMPHOCYTES 1.3 %; MCH 25.9 pg (26.0-34.0); MCHC 31.2 g/dL (28.0-37.0); MONOCYTES 2.7 %; NUCLEATED RBCS 0 /100WBC; POLYS 95.7 %; RBC 4.27 mil/uL (4.20-5.00); RDW-CV 17.3 % (10.5-14.5); WBC 32.3 thou/uL (4.0-11.0)
[2020-06-14 15:41] LABS: HEMOGLOBIN 11.1 gm/dL (12.0-15.0); PLATELET COUNT* 485 thou/uL (150-400)
[2020-06-14 15:45] LABS: CALCIUM 10.3 mg/dL (8.5-10.1); CREATININE 1.3 mg/dL (0.6-1.3); POTASSIUM 5.5 mmol/L (3.5-5.1)
[2020-06-14 15:47] LABS: APTT 23.4 Seconds (25.0-31.3); PROTIME 10.7 Seconds (9.20-11.50)
[2020-06-14 15:58] LABS: CK-MB MASS 2.2 ng/mL (<0.5-3.6); TOTAL BILIRUBIN 0.5 mg/dL (<0.1-1.0); TOTAL PROTEIN 7.6 g/dL (6.4-8.2)
[2020-06-14 19:31] VITALS: BP 101/48
[2020-06-14 20:40] VITALS: BP 101/48
[2020-06-14 20:49] VITALS: BP 115/59
[2020-06-14 23:45] VITALS: BP 130/60
[2020-06-15 04:43] VITALS: BP 140/52
[2020-06-15 08:00] VITALS: BP 149/53
[2020-06-15 09:46] LABS: BE 5.7 mmol/L (-2 to +3); PO2 61.1 mmHg (75.0-100.0)
[2020-06-15 09:49] LABS: PCO2 57.1 mmHg (35.0-45.0)
--- NOTE | 2020-06-15 10:22 | EKG ---
[place] [address] ELECTROCARDIOGRAM REPORT Name: NAZIA FENG Room: [address] ADM IN M.R.#: [id number] Admission: 06/14/20 Attend Phys: Ping Sands Discharge: Date of : 45 Date of Service: 06/14/20 1540 Report #: [id number] THIS REPORT FOR: //name// [facility] ED Test Date: 2020-06-14 Test Time: 15:40:11 Pat Name: NAZIA FENG Department: Room: [facility] Gender: F Gunner'S Mate G: : 1945 Requested By: Kristofer Mcduffie Order Number: [id number] MD: Marc Britton Measurements Intervals [place] Rate: 88 P: 70 MO: 125 QRS: -68 QRSD: 88 T: 64 QT: 381 QTc: 461 Interpretive Statements Sinus rhythm LAE, consider biatrial enlargement Left anterior fascicular block Abnormal R-wave progression, early transition Probable left ventricular hypertrophy Compared to ECG 05/31/2020 04:04:53 no change Electronically Signed On 06-15-2020 10:21:56 CRYSTALIZER by Marc Britton [email or web address] <ELECTRONICALLY SIGNED> By: Marc Britton MD, FAC 06/15/20 1021 1540 1540 Marc Britton MD, [facility] /EPI
[2020-06-15 12:00] VITALS: BP 109/62
[2020-06-15 15:11] VITALS: BP 126/51
[2020-06-15 23:54] VITALS: BP 130/50
[2020-06-16 04:00] VITALS: BP 122/56
[2020-06-16 06:16] LABS: URINE BILIRUBIN NEGATIVE (Negative); URINE BLOOD TRACE (Negative); URINE CLARITY CLEAR; URINE COLOR YELLOW; URINE GLUCOSE-RANDOM NEGATIVE (Negative); URINE KETONES NEGATIVE (Negative); URINE LEUKOCYTES-REFLEX NEGATIVE (Negative); URINE NITRITE-REFLEX NEGATIVE (Negative); URINE PROTEIN 1+ (Negative); URINE UROBILINOGEN 0.2 E.U./dl (0.2-1.0)
[2020-06-16 12:18] VITALS: BP 98/47
[2020-06-16 16:14] VITALS: BP 102/50
[2020-06-16 20:00] VITALS: BP 103/55
[2020-06-17] VITALS: BP 159/63
[2020-06-17 01:02] LABS: PCO2 86.2 mmHg (35.0-45.0); PO2 128.7 mmHg (75.0-100.0); pH 7.275 (7.340-7.450)
[2020-06-17 04:48] VITALS: BP 104/44
[2020-06-17 08:00] VITALS: BP 96/42
[2020-06-17 10:28] LABS: BE 9.9 mmol/L (-2 to +3); PO2 60.2 mmHg (75.0-100.0); pH 7.304 (7.340-7.450)
[2020-06-17 10:33] LABS: PCO2 79.8 mmHg (35.0-45.0)
[2020-06-17 12:43] VITALS: BP 98/54
[2020-06-17 13:56] LABS: HEMATOCRIT 27.8 % (37.0-47.0); MCH 25.8 pg (26.0-34.0); MCHC 30.7 g/dL (28.0-37.0); MPV 7.7 fl. (7.2-11.1); NUCLEATED RBCS 0 /100WBC; RBC 3.31 mil/uL (4.20-5.00); RDW-CV 16.8 % (10.5-14.5); WBC 22.5 thou/uL (4.0-11.0)
[2020-06-17 14:00] LABS: HEMOGLOBIN 8.5 gm/dL (12.0-15.0); PLATELET COUNT* 328 thou/uL (150-400)
[2020-06-17 14:15] LABS: CALCIUM 9.4 mg/dL (8.5-10.1); CREATININE 1.2 mg/dL (0.6-1.3); MAGNESIUM 1.8 mg/dL (1.8-2.4); POTASSIUM 4.4 mmol/L (3.5-5.1); TOTAL BILIRUBIN 0.4 mg/dL (<0.1-1.0); TOTAL PROTEIN 6.4 g/dL (6.4-8.2)
[2020-06-17 14:28] LABS: ABSOLUTE LYMPHOCYTES 0.5 thou/uL (0.8-5.3); ABSOLUTE NEUTROPHILS 22.1 thou/uL (1.6-8.1); HYPOCHROMASIA 2+; PLATELET ESTIMATE ADEQUATE
[2020-06-17 14:29] LABS: MICROCYTES Occasional
[2020-06-17 18:21] VITALS: BP 101/51
[2020-06-17 20:36] VITALS: BP 104/48
[2020-06-18 00:50] VITALS: BP 99/49
[2020-06-18 04:00] VITALS: BP 103/50
[2020-06-18 07:18] LABS: ABSOLUTE LYMPHOCYTES 0.2 thou/uL (0.8-5.3); ABSOLUTE MONOCYTES 0.2 thou/uL (0.0-1.2); HEMATOCRIT 25.4 % (37.0-47.0); LYMPHOCYTES 1.3 %; MCH 25.7 pg (26.0-34.0); MCHC 31.5 g/dL (28.0-37.0); MCV 81.8 fL (80.0-100.0); MONOCYTES 1.4 %; MPV 7.7 fl. (7.2-11.1); NUCLEATED RBCS 0 /100WBC; PLATELET COUNT* 339 thou/uL (150-400); POLYS 97.3 %; WBC 13.4 thou/uL (4.0-11.0)
[2020-06-18 07:33] LABS: ALBUMIN 1.9 g/dL (3.4-5.0); CALCIUM 9.4 mg/dL (8.5-10.1); CREATININE 1.1 mg/dL (0.6-1.3); MAGNESIUM 2.7 mg/dL (1.8-2.4); PHOSPHORUS* 2.6 mg/dL (2.5-4.9); POTASSIUM 4.1 mmol/L (3.5-5.1); TOTAL BILIRUBIN 0.2 mg/dL (<0.1-1.0); TOTAL PROTEIN 6.5 g/dL (6.4-8.2)
[2020-06-18 08:00] VITALS: BP 98/49
[2020-06-18 08:14] LABS: BE 12.2 mmol/L (-2 to +3); PCO2 48.4 mmHg (35.0-45.0); PO2 77.7 mmHg (75.0-100.0); pH 7.496 (7.340-7.450)
[2020-06-18 11:02] VITALS: BP 108/51
[2020-06-18 16:32] VITALS: BP 122/58
[2020-06-18 20:00] VITALS: BP 129/61
[2020-06-19] VITALS (7 sets, daily range): BP systolic 111–147; BP diastolic 53–70
[2020-06-19 04:45] LABS: HEMATOCRIT 24.2 % (37.0-47.0); HEMOGLOBIN 7.6 gm/dL (12.0-15.0); MCH 25.7 pg (26.0-34.0); MCHC 31.4 g/dL (28.0-37.0); MCV 81.7 fL (80.0-100.0); MPV 7.8 fl. (7.2-11.1); RBC 2.96 mil/uL (4.20-5.00); RDW-CV 17.3 % (10.5-14.5); WBC 19.8 thou/uL (4.0-11.0)
[2020-06-19 05:04] LABS: CREATININE 1.1 mg/dL (0.6-1.3); MAGNESIUM 2.5 mg/dL (1.8-2.4); POTASSIUM 4.3 mmol/L (3.5-5.1)
[2020-06-20] VITALS: BP 144/65
[2020-06-20 04:00] VITALS: BP 145/61
[2020-06-20 04:22] LABS: ABSOLUTE LYMPHOCYTES 0.2 thou/uL (0.8-5.3); ABSOLUTE MONOCYTES 0.8 thou/uL (0.0-1.2); ABSOLUTE NEUTROPHILS 11.8 thou/uL (1.6-8.1); BASOPHILS 0.1 %; HEMATOCRIT 23.8 % (37.0-47.0); HEMOGLOBIN 7.5 gm/dL (12.0-15.0); LYMPHOCYTES 1.9 %; MCH 25.7 pg (26.0-34.0); MCHC 31.4 g/dL (28.0-37.0); MCV 81.7 fL (80.0-100.0); MONOCYTES 6.4 %; MPV 7.5 fl. (7.2-11.1); NUCLEATED RBCS 0 /100WBC; PLATELET COUNT* 315 thou/uL (150-400); POLYS 91.6 %; RBC 2.91 mil/uL (4.20-5.00); WBC 12.9 thou/uL (4.0-11.0)
[2020-06-20 04:46] LABS: CALCIUM 8.8 mg/dL (8.5-10.1); CREATININE 1.1 mg/dL (0.6-1.3); MAGNESIUM 2.2 mg/dL (1.8-2.4); POTASSIUM 4.3 mmol/L (3.5-5.1); TOTAL BILIRUBIN 0.1 mg/dL (<0.1-1.0); TOTAL PROTEIN 5.5 g/dL (6.4-8.2)
[2020-06-20 08:30] VITALS: BP 133/66
[2020-06-20 20:00] VITALS: BP 128/55
[2020-06-21] VITALS: BP 157/109
[2020-06-21 04:00] VITALS: BP 141/59
[2020-06-21 04:50] LABS: HEMATOCRIT 26.2 % (37.0-47.0); HEMOGLOBIN 8.2 gm/dL (12.0-15.0); MCH 25.5 pg (26.0-34.0); MCHC 31.3 g/dL (28.0-37.0); MCV 81.4 fL (80.0-100.0); MPV 7.5 fl. (7.2-11.1); RBC 3.21 mil/uL (4.20-5.00); WBC 12.9 thou/uL (4.0-11.0)
[2020-06-21 05:02] LABS: CALCIUM 8.8 mg/dL (8.5-10.1); POTASSIUM 4.4 mmol/L (3.5-5.1); TOTAL BILIRUBIN 0.2 mg/dL (<0.1-1.0); TOTAL PROTEIN 6.1 g/dL (6.4-8.2)
[2020-06-21 08:55] VITALS: BP 162/77
[2020-06-21 16:00] VITALS: BP 151/64
[2020-06-21 20:00] VITALS: BP 150/70
[2020-06-22 00:25] VITALS: BP 141/60
[2020-06-22 08:00] VITALS: BP 142/74
[2020-06-22] MEDS ORDERED: VOLTAREN GEL 1100 G1 TOP (08:07)
[2020-06-22] MEDS ORDERED: FLORASTOR250 MG PO (08:07)
[2020-06-22] MEDS ORDERED: OXYCODONE HCL 55 MG PO (08:07)
[2020-06-22] MEDS ORDERED: REGLAN 10 MG TA10 MG PO (08:07)
[2020-06-22] MEDS ORDERED: NYSTATIN15 G1 TOP (08:07)
[2020-06-22] MEDS ORDERED: FOLIC ACID1 MG PO (08:07)
[2020-06-22] MEDS ORDERED: PREDNISONE 10 M10 M1 PO (08:07)
[2020-06-22] MEDS ORDERED: NEURONTIN 400400 M1 PO (08:07)
== END 2020-06-22 14:23 | DRG 917 ==
LOC: M.ERS 14:53 → M.TBA-ER 15:28 → M.2W 15:28
PROVIDERS: Family Medicine; Internal Medicine; Internal Medicine Critical Care Medicine; ADMIT Internal Medicine; ATTEND Internal Medicine
DX: T40.601A Poisoning by unspecified narcotics, accidental (unintentional), initial encounter (principal); A41.9 Sepsis, unspecified organism; J69.0 Pneumonitis due to inhalation of food and vomit; S22.5XXA Flail chest, initial encounter for closed fracture; I46.8 Cardiac arrest due to other underlying condition; G92 Toxic encephalopathy; J96.21 Acute and chronic respiratory failure with hypoxia; J96.22 Acute and chronic respiratory failure with hypercapnia; J44.1 Chronic obstructive pulmonary disease with (acute) exacerbation; K56.7 Ileus, unspecified; F17.200 Nicotine dependence, unspecified, uncomplicated; D64.9 Anemia, unspecified; K59.00 Constipation, unspecified; G89.29 Other chronic pain; Z20.822 Contact with and (suspected) exposure to COVID-19; X58.XXXA Exposure to other specified factors, initial encounter; Z86.16 Personal history of COVID-19; Y92.89 Other specified places as the place of occurrence of the external cause; Z90.49 Acquired absence of other specified parts of digestive tract; Z79.82 Long term (current) use of aspirin; Z79.899 Other long term (current) drug therapy; Z88.1 Allergy status to other antibiotic agents; Z88.5 Allergy status to narcotic agent; Z88.8 Allergy status to other drugs, medicaments and biological substances; Z91.09 Other allergy status, other than to drugs and biological substances; Y93.89 Activity, other specified; Y99.8 Other external cause status